=== PATIENT | male | born 1945 | race Caucasian/White ===

== ENCOUNTER 2018-09-24 19:46 | Observation (INO) ==
[2018-09-24] MEDS ORDERED: Nitroglycerin 0.4 MG TAB.SUBL SL PRN (20:14)
[2018-09-24] MEDS ORDERED: Aspirin 325 MG TABLET PO ONE (20:14)
--- NOTE | 2018-09-24 20:20 | Emergency Department Note ---
Disposition Clinical Impression: Afib Qualifiers: Atrial fibrillation type: unspecified Qualified Code(s): I48.91 - Unspecified atrial fibrillation Chest pain Qualifiers: Chest pain type: unspecified Qualified Code(s): R07.9 - Chest pain, unspecified Disposition: Admitted As Inpatient Condition: Good Time of Disposition: 21:36 Arrhythmia/Palpitations HPI - General Chief Complaint: ED Arrhythmia/Palpitations Stated Complaint: afib Time Seen by Provider: 09/24/18 20:03 Source: patient, family Mode of arrival: ambulatory Limitations: no limitations Nursing Notes Reviewed: Yes Vital Signs Reviewed: Yes - History of Present Illness HPI Narrative: 73-year-old male with a history of hypertension presents for evaluation of chest pain and A. fib. Patient states that he had no formal diagnosis of A. fib but has noted palpitations in the past. Patient was having palpitation chest pain earlier today went to [facility] where he was diagnosed with A. fib. Patient stated that his anterior chest pain earlier today lasted approximately 10 minutes and resolved. This was nonexertional without radiation. Patient was released from [facility] as he does have a scheduled appointment with Dr. Harrell tomorrow. Patient return to the ER this evening when he started feel lightheaded with blurry vision. Patient was having some anterior chest discomfort. Was denying any nausea vomiting or diaphoresis. Patient is denying any shortness of breath. Patient states he try to take his blood pressure and it would not read. Patient states that his appointment with Dr. Harrell tomorrow is long-standing. Patient denies history of known CAD states his last heart catheter was in 2010 and no stents were placed. - Related Data Allergies Allergy/AdvReac Type Severity Reaction Status Date / Time No Known Allergies Allergy Verified 09/24/18 19:48 All systems ED: reviewed and negative except as stated. Constitutional: Denies: fever Cardiovascular: Reports: chest pain Respiratory: Denies: cough, dyspnea, wheezes Gastrointestinal: Denies: nausea, vomiting Past Medical History - Past Medical History Source: patient Medical history: Reports: atrial fibrillation, hypertension, other Psychiatric history: Reports: no psych history - Social History Smoking Status: Former smoker Smokeless Tobacco Status: No Alcohol use: Reports: heavy Drug use: Reports: none Physical Exam - General Limitations: no limitations General appearance: alert, in no apparent distress - Head Head exam: atraumatic, normocephalic, normal inspection - Eye Eye exam: Present: normal appearance, PERRL, EOMI - ENT ENT exam: normal exam - Neck Neck exam: Present: normal inspection - Chest Chest inspection: Present: normal inspection, symmetric chest wall rise - Respiratory Respiratory exam: Present: normal lung sounds bilaterally. Absent: respiratory distress - Cardiovascular Cardiovascular exam: Present: regular rate, normal rhythm. Absent: normal heart sounds - Abdominal Exam Abdominal exam: Present: soft, Non-Tender - Extremities Exam Extremities exam: Present: normal inspection. Absent: pedal edema - Back Exam Back exam: Present: normal inspection - Neurological Exam Neurological exam: Present: alert, oriented X3 - Skin Skin exam: Present: warm, dry, intact, normal color Course Course Narrative: Patient seen and examined. Patient is in no acute distress. Patient is complaining of some mild discomfort. Patient will get basic cardiopulmonary evaluation and anticipated admission to the hospitalist service - Reevaluation(s) Reevaluation #1: Patient's chest score of 2. Patient is not a fall risk and will be anticoagulated with heparin. Time: 21:19 Vital Signs Temperature 98 F 09/24/18 19:50 Pulse Rate 80 09/24/18 19:50 Respiratory Rate 17 09/24/18 19:50 Blood Pressure 168/81 09/24/18 19:50 O2 Sat by Pulse Oximetry 96 09/24/18 19:50 Temperature 98 F 09/24/18 19:50 Pulse Rate 80 09/24/18 19:50 Respiratory Rate 17 09/24/18 19:50 Blood Pressure 168/81 09/24/18 19:50 O2 Sat by Pulse Oximetry 96 09/24/18 19:50 Oxygen Delivery Oxygen Delivery Room Air Arrhythmia/Palpitations - [facility] Narrative Medical decision making narrative: Patient presents for evaluation of chest pain as well as A. fib. Patient did bring his left heart catheter report from 2010 after he had an abnormal stress test. In that report a shows that the patient has stenosis of the LAD about 30%. No disease of the left main. Patient's EF was 55%. Patient appears overall well. Patient labs obtained show no I abnormalities that can cause symptoms. Patient troponin was negative. Patient's been resting comfortably in the ED. No concerns for PE with these patient's symptoms. Patient will be admitted to the hospital service with continued cardiopulmonary monitoring. - Lab Data Lab results reviewed: Yes I reviewed the patient's lab results. Result diagrams: 09/24/18 20:35 09/24/18 20:35 Lab Results 09/24/18 09/24/18 09/24/18 Range/Units 20:35 20:35 20:35 WBC 5.6 (4.3-11.1) K/mcL RBC 4.47 (4.19-5.50) M/mcL Hgb 13.7 (12.9-16.9) g/dL Hct 41.5 (37.5-50.1) % MCV 92.8 (83.0-100.0) fL MCH 30.6 (28.0-33.3) pg MCHC 33.0 (31.6-35.5) g/dL RDW 13.5 (11.5-14.5) % Plt Count 233 (140-400) K/mcL MPV 10.5 (9.4-12.4) fL Immature Gran % 0.2 (0-4) % Seg Neutrophils % 50.6 % Lymphocytes % 34.6 % Monocytes % 8.3 % Eosinophils % 5.2 % Basophils % 1.1 % Neutrophils # 2.8 (1.6-8.9) K/mcL Lymphocytes # 1.9 (0.6-4.6) K/mcL Monocytes # 0.5 (0.0-1.3) K/mcL Eosinophils # 0.3 (0.0-0.6) K/mcL Basophils # 0.1 (0.0-0.2) K/mcL PT 14.0 H (9.4-12.1) Seconds INR 1.2 APTT 33.2 (26.0-36.0) Seconds Heparin Anti-Xa, Unfract 0.57 (0.30-0.70) IU/mL Sodium 141 (136-145) mEq/L Potassium 4.0 (3.5-5.1) mEq/L Chloride 109 H (98-107) mEq/L Carbon Dioxide 24 (23-29) mEq/L BUN 26 H (8-23) mg/dL Creatinine 1.06 (0.70-1.30) mg/dL Est GFR ( Amer) > 60 (> 60) Est GFR (Non-Af Amer) > 60 (> 60) BUN/Creatinine Ratio 25 (6-26) Glucose 97 (70-105) mg/dL Calculated Osmolality 297 (280-300) Calcium 9.0 (8.6-10.3) mg/dL Magnesium 2.3 (1.6-2.6) mg/dL Troponin I < 0.03 (< 0.04) ng/mL - Radiology Data Radiology results reviewed: Yes I reviewed the patient's radiology results. Chest X-Ray 09/24/18 20:14 IMPRESSION: No acute cardiopulmonary disease. D/ / Arnaldo Tierney MD / Arnaldo Tierney MD Interpreting Provider: Arnaldo Tierney MD - EKG Data EKG attestation: Yes I reviewed and interpreted this EKG. Rate: normal Rhythm: A.Fib Morley/QRS: right axis deviation When compared to previous EKG there are: changes noted S.B.ASanta - S.Robinson Situation: Demographics Background: Presenting Complaint Assessment: Vital Signs, Course and respsone to treatment, Patient/Family Expectation Recommendation: Barrier(s) to disposition, Recommendation based on pending studies, treatments, or consults S.B.ASanta Report Given to: Dr. Susy Mcpherson Repor Time: 21:34 Attestation Statement - Attestation Attestation: Resident Attestation: I examined this patient and my medical decision making was reviewed with the Resident Physician. I agree with the documented findings, disposition and treatment plan as described except to the extent set forth below. We independently had [id number] contact with the patient. Patient presents for evaluation of A. fib and chest pain as well as dizziness and hypotension at home. Patient diagnosed with new-onset A. fib at her hospital today. Patient was in the emergency department and discharged from there. Patient will follow-up with thermostat maker tomorrow. Patient with continued symptoms and feeling as if he is given a pass out. Patient will undergo further evaluation for A. fib. Patient will be admitted for further cardiac workup of new onset A. fib associated chest pain and near syncope. Resting comfortable in bed, irregular rate and rhythm, clear to auscultation bilaterally, no swelling to the extremities.
[2018-09-24 21:04] LABS: Basophils # 0.1 K/mcL (0.0-0.2); Basophils % 1.1 %; Eosinophils # 0.3 K/mcL (0.0-0.6); Eosinophils % 5.2 %; Hematocrit 41.5 % (37.5-50.1); Hemoglobin 13.7 g/dL (12.9-16.9); Immature Granulocytes % 0.2 % (0-4); Lymphocytes # 1.9 K/mcL (0.6-4.6); Lymphocytes % 34.6 %; Mean Corpuscular Hemoglobin 30.6 pg (28.0-33.3); Mean Corpuscular Volume 92.8 fL (83.0-100.0); Mean Platelet Volume 10.5 fL (9.4-12.4); Monocytes # 0.5 K/mcL (0.0-1.3); Monocytes % 8.3 %; Neutrophils # 2.8 K/mcL (1.6-8.9); Platelet Count 233 K/mcL (140-400); Red Blood Count 4.47 M/mcL (4.19-5.50); Red Cell Distribution Width 13.5 % (11.5-14.5); Segmented Neutrophils % 50.6 %
[2018-09-24 21:13] LABS: INR 1.2
[2018-09-24 21:15] LABS: Activated Partial Thrombo Time 33.2 Seconds (26.0-36.0)
[2018-09-24] MEDS ORDERED: *HR* Heparin 5,000 UNIT/ML VIAL IVP PRN ×2 (21:18)
[2018-09-24] MEDS ORDERED: *HR* Heparin 5,000 UNIT/ML VIAL IVP ONE (21:18)
[2018-09-24 21:29] LABS: BUN/Creatinine Ratio 25 (6-26); Blood Urea Nitrogen 26 mg/dL (8-23); Carbon Dioxide 24 mEq/L (23-29); Chloride 109 mEq/L (98-107); Glucose 97 mg/dL (70-105); Magnesium 2.3 mg/dL (1.6-2.6); Osmolality,Calculated 297 (280-300); Sodium 141 mEq/L (136-145); Troponin I < 0.03 ng/mL (< 0.04); eGFR For Non-African Americans > 60 (> 60)
[2018-09-24 21:30] LABS: Heparin anti-factor XA UFH 0.57 IU/mL (0.30-0.70)
[2018-09-24 21:42] LABS: Thyroid Stimulating Hormone 3.782 mcIU/mL (0.340-5.600)
[2018-09-24] MEDS: Heparin 25,000 UNIT/250 ML D5W 25,000 UNIT/250 ML IV.SOLN IVC SCH (22:28)
[2018-09-24] MEDS ORDERED: Naloxone 0.4 MG/ML INJ IVP PRN (23:23)
--- NOTE | 2018-09-25 00:11 | Internal Med History&Physical ---
Date of Encounter: 09/24/18 Time of Encounter: 22:00 Internal Medicine - H&P: HPI Chief complaint: Palpitations, Chest Tightness Admitted From: Home Plans for Post Hospital Care: Home History of present illness: Mr. Martin is a 73 year old male with past medical history significant for hypertension, asthma, bronchitis, skin cancer, and cataracts who presents from home for complaints of palpitations with chest tightness. Was seen for same at [facility] ER this morning and diagnosed with new onset atrial fibr illation. Patient has chronic history of palpitations but no previous history of arrhythmia, however since June 2018 has been experiencing palpitations that he describes as different than his chronic palpitations. Was seen by PCP in June 2018 and had a Holter monitor ordered which did not show any arrhythmia but was told if symptoms reoccur to go to ER. [facility] consulted with [place] cardiology Dr. Harrell who scheduled to see patient tomorrow. Patient was started on metoprolol and eliquis and discharged home. After arriving home patient started having more palpitations and chest tightness associated with dizziness and blurred vision and so he sought evaluation at [facility] ER. Also reports attempting to check blood pressure at home prior to coming to [facility] and blood pressure machine would not repeat pressure. Reports previous episodes of hypotension with similar symptoms of dizziness and blurred vision. Symptoms resolved with resolution of palpitations. Chest tightness is substernal, nonradiating, and occurs only with palpitations and is rated at 4 out of 10 when at its worst. Upon arrival to [facility] ER EKG was reported as atrial fibrillation but later went back into normal rhythm. Chest x-ray was also obtained by ER which showed no acute cardiopulmonary process. Patient currently denying any headache, vision changes, dizziness, chest pain, shortness of breath, abdominal pain, nausea, bowel or bladder changes. Had previous abnormal stress test followed by heart catheterization with no interventions necessary in 2010. Follows regularly with PCP, dermatology, ophthalmology, and recently started seeing an orthopedic surgeon for possible hip replacement. Checks blood pressures at home and reports systolic has been averaging in the 120s. Reports previous tobacco smoking history, occasional social alcohol use, and denies any drug use. Past Med Surg Social Fam HX - Past Medical History Medical history: atrial fibrillation, hypertension, other Additional medical history: enlarged prostate, skin cancer Psychiatric history: no psych history - Past Surgical History Surgical History: appendectomy, orthopedic, other, vasectomy, other Additional surgical history: Pilonidal cyst, cervical disectomy and fusion - Social History Smoking Status: Former smoker Smokeless Tobacco Status: No Alcohol use: occasionally Drug use: none - Family History Mother Adopted: [place]: [place] Family Member Ethnicity: Non- Living Status: Age at : 63 Cause of : LUNG CANCER Hx Family Cardiac Disorders: No Hx Family Respiratory Disorders: No Hx Family Cancer: Yes Hx Family GI Disorders: No Hx Family Genitourinary Disorders: No Hx Family Endocrine Disorder: No Hx Family Musculoskeletal Disorders: No Hx Family Neuromuscular Disorders: No Hx Family Neurologic Disorders: No Hx Family HEENT Disorders: No Hx Family Autoimmune Disorders: No Hx Family Reproductive Disorders: No Hx Family Psychosocial Disorders: No Hx Family Medical Disorders: No Father Hx Family Cardiac Disorders: Yes Internal Medicine - H&P: Meds Albuterol Sulfate 09/24/18 [History] Brimonidine Tartrate 09/24/18 [History] Dorzolamide HCl 09/24/18 [History] Doxazosin Mesylate 4 mg PO DAILY 09/24/18 [History] Fexofenadine HCl 180 mg PO PRN PRN 09/24/18 [History] Finasteride 5 mg PO DAILY 09/24/18 [History] Flonase 50 mcg NS PRN PRN 09/24/18 [History] Lisinopril-HCTZ 10-12.5 mg PO DAILY 09/24/18 [History] Lumigan 09/24/18 [History] Naproxen 500 mg PO PRN PRN 09/24/18 [History] Allergy/AdvReac Type Severity Reaction Status Date / Time No Known Allergies Allergy Verified 09/24/18 19:48 All Systems PM: A 10-system review of systems was performed and is negative for pertinent findings except as documented above in the HPI. - Constitutional Vitals: Temp Pulse Resp BP Pulse Ox 98 F 61 16 132/81 98 09/24/18 19:50 09/24/18 22:32 09/24/18 22:32 09/24/18 22:32 09/24/18 22:32 Exam: General: Alert and oriented. Skin:Normal color, no rash, no lesions. HEENT:Pupils equal, round and reactive. Cardiovascular:Normal S1 & S2, no rubs, murmurs or gallops. No JVD. Pulse regular. Lungs:Normal breath sounds, no wheezes or crackles. Abdomen:Soft, non-tender, no rigidity. Extremities:No deformity, tenderness, joint swelling, or clubbing. Non pitting edema noted to bilateral lower extremities. Neurological:Normal cognition and motor skills. Pulses:Carotid and radial pulses normal +2. Rest of the physical exam is non contributory. Internal Med - H&P Results - Labs CBC & Chem 7: 09/24/18 20:35 09/24/18 20:35 Labs: Short CBC 09/24/18 Range/Units 20:35 WBC 5.6 (4.3-11.1) K/mcL Hgb 13.7 (12.9-16.9) g/dL Hct 41.5 (37.5-50.1) % Plt Count 233 (140-400) K/mcL Neutrophils # 2.8 (1.6-8.9) K/mcL BMP 09/24/18 20:35 Sodium 141 Potassium 4.0 Chloride 109 H Carbon Dioxide 24 BUN 26 H Creatinine 1.06 Glucose 97 Calcium 9.0 Cardiac Enzymes 09/24/18 Range/Units 20:35 Troponin I < 0.03 (< 0.04) ng/mL - Impressions ITS Impressions Chest X-Ray 09/24/18 20:14 IMPRESSION: No acute cardiopulmonary disease. D/ / Arnaldo Tierney MD / Arnaldo Tierney MD Interpreting Provider: Arnaldo Tierney MD - Assessment and Plan (1) Chest pain Current Visit: Yes Status: Acute Assessment and plan: Likely secondary to new onset atrial fibrillation. Initial troponin in ER negative, serial troponins ordered. Started on heparin drip in ER, will continue same. Continuous cardiac monitoring. Cardiology consult ordered, will need called in a.m. Qualifiers: Chest pain type: unspecified Qualified Code(s): R07.9 - Chest pain, unspecified (2) Atrial fibrillation Current Visit: Yes Status: Acute Assessment and plan: Started on metoprolol at [facility] ER today, will continue same. Started on heparin drip in ER, will continue same. Continuous cardiac monitoring. Cardiology consult ordered, will need called in a.m. Qualifiers: Atrial fibrillation type: unspecified Qualified Code(s): I48.91 - Unspecified atrial fibrillation (3) Elevated BUN Current Visit: Yes Status: Acute Assessment and plan: Creatinine and GFR within normal limits. No previous labs on file in [facility] or history of renal dysfunction. Repeat labs ordered. (4) Hypertension Current Visit: Yes Status: Chronic Assessment and plan: Continue home medications. Qualifiers: Hypertension type: unspecified Qualified Code(s): I10 - Essential (primary) hypertension - Time Spent With Patient Total time spent is greater than 50% in coordination of care (as documented) at patient's floor/unit and/or counseling patient:
[2018-09-25 08:55] LABS: Basophils # 0.1 K/mcL (0.0-0.2); Eosinophils # 0.4 K/mcL (0.0-0.6); Eosinophils % 6.8 %; Hematocrit 38.1 % (37.5-50.1); Hemoglobin 12.7 g/dL (12.9-16.9); Immature Granulocytes % 0.2 % (0-4); Lymphocytes # 1.9 K/mcL (0.6-4.6); Lymphocytes % 36.4 %; Mean Corpuscular HGB Conc 33.3 g/dL (31.6-35.5); Mean Corpuscular Hemoglobin 31.1 pg (28.0-33.3); Mean Corpuscular Volume 93.2 fL (83.0-100.0); Mean Platelet Volume 10.2 fL (9.4-12.4); Monocytes # 0.4 K/mcL (0.0-1.3); Monocytes % 8.4 %; Neutrophils # 2.4 K/mcL (1.6-8.9); Platelet Count 188 K/mcL (140-400); Red Blood Count 4.09 M/mcL (4.19-5.50); Red Cell Distribution Width 13.6 % (11.5-14.5); Segmented Neutrophils % 47.2 %
[2018-09-25] MEDS ORDERED: Dorzolamide OPTH 10 ML BOTTLE BOTH EYES SCH (09:00)
[2018-09-25] MEDS ORDERED: Finasteride 5 MG TABLET PO SCH (09:00)
--- NOTE | 2018-09-25 09:07 | Electrocardiograph Report ---
[address] [address] Test Date: 2018-09-24 Pat Name: Ileana Martin Department: 104 Room: 3B46 Gender: M Rug Receiving Clerk: Sathish : 1945 Requested By: John Jenkins Order Number: [id number] Reading MD: Benito Reeves Measurements Intervals [place] Rate: 83 P: [place]: 0 QRS: -4 QRSD: 97 T: 42 QT: 345 QTc: 385 Interpretive Statements ATRIAL FIBRILLATION ABNORMAL RHYTHM ECG Electronically Signed On 09-25-2018 9:06:05 EDT by Benito Reeves
[2018-09-25 09:16] LABS: BUN/Creatinine Ratio 27 (6-26); Blood Urea Nitrogen 25 mg/dL (8-23); Calcium 8.6 mg/dL (8.6-10.3); Carbon Dioxide 26 mEq/L (23-29); Chloride 109 mEq/L (98-107); Glucose 102 mg/dL (70-105); Osmolality,Calculated 299 (280-300); Potassium 3.5 mEq/L (3.5-5.1); Sodium 142 mEq/L (136-145); Troponin I < 0.03 ng/mL (< 0.04); eGFR For Non-African Americans > 60 (> 60)
[2018-09-25 11:23] VITALS: BP 125/77
--- NOTE | 2018-09-25 12:58 | Cardiology Consult Note ---
<TavonJaswinder flores R - Last Filed: 09/25/18 12:54> Date of Encounter: 09/25/18 Time of Encounter: 12:55 Assessment and Plan (1) PAF (paroxysmal atrial fibrillation) Status: Acute C/O palpitations and chest tightness. Seen at [facility] yesterday and diagnosed with new onset A-Fib. 2 similar episodes June 2018. Pt was started on metoprolol and eliquis from ED and discharged home. Recurrent symptoms last night prompted ED eval. Admission ECG shows A-Fib rate 80s. Pt since converted back to SR. Symptoms resolved with resolution of A-Fib. K, Mag, TSH WNL. Check TTE to evaluate structure and function. Agree with low dose BB--Lopressor 25mg BID. 12 hr tele AVG HR 52, SR. [id number] 2 (Age, HTN). High CVA risk. Recommend AC. R/B/A discussed and pt agrees. Eliquis was $300 for 90 day supply, not affordable. Will start Coumadin with pharmacy to dose. Plan to refer to [facility] as outpt. If no significant findings on TTE then no further inpt cardiac testing will be warranted. (2) Chest pain Status: Acute Chest tightness is substernal, nonradiating, and occurs only with palpitations/when in A-Fib. No exertional symptoms. Troponins negative x 3. Check TTE. [facility] 2010 minimal CAD (luminal irregularities in LCx and LAD). Can consider outpt stress test for re-evaluation. Qualifiers: Chest pain type: unspecified Qualified Code(s): R07.9 - Chest pain, unspecified Discussion w patient/family: The assessment and plan as outlined above was discussed with the patient and/or family members who expressed understanding and agreement. All questions were answered. Thank you for involving us in the care of your patient. Please call with any questions. I will discuss all the above with Dr. Reeves and make changes as necessary. History of Present Illness Consult date: 09/25/18 Consult reason: PAF Chief complaint: chest tightness, palpitations History of present illness: Mr. Martin is a 73 year old male with PMH of HTN, asthma, bronchitis, skin cancer, and cataracts who presents from home for complaints of palpitations with chest tightness. Was seen for same at [facility] ER yesterday morning and diagnosed with new onset atrial fibrillation. 2 similar episodes June 2018, saw PCP and holter monitor was ordered which did not show any arrhythmia. Pt was started on metoprolol and eliquis from ED and discharged home. After arriving home patient started having more palpitations and chest tightness associated with dizziness and blurred vision and so he sought evaluation at [facility] ER. Sympt oms resolved with resolution of palpitations. Chest tightness is substernal, nonradiating, and occurs only with palpitations. Troponins negative. Cardiology consulted for further recs. No complaints currently. Past Med Surg Social Fam HX - Past Medical History Medical history: asthma, atrial fibrillation, glaucoma, hypertension, other Additional medical history: enlarged prostate, skin cancer Psychiatric history: no psych history - Past Surgical History Surgical History: appendectomy, orthopedic, other, vasectomy, other Additional surgical history: Pilonidal cyst, cervical disectomy and fusion - Social History Smoking Status: Former smoker Smokeless Tobacco Status: No Alcohol use: occasionally Drug use: none - Family History Mother Adopted: [place]: [place] Family Member Ethnicity: Non- Living Status: Age at : 63 Cause of : LUNG CANCER Hx Family Cardiac Disorders: No Hx Family Respiratory Disorders: No Hx Family Cancer: Yes Hx Family GI Disorders: No Hx Family Genitourinary Disorders: No Hx Family Endocrine Disorder: No Hx Family Musculoskeletal Disorders: No Hx Family Neuromuscular Disorders: No Hx Family Neurologic Disorders: No Hx Family HEENT Disorders: No Hx Family Autoimmune Disorders: No Hx Family Reproductive Disorders: No Hx Family Psychosocial Disorders: No Hx Family Medical Disorders: No Father Hx Family Cardiac Disorders: Yes Medications and Allergies Albuterol Sulfate [Albuterol Inhaler] 2 puff IH Q4-6H PRN 09/25/18 [History] Amlodipine Besylate 5 mg PO DAILY 09/25/18 [History] Apixaban [Eliquis] 5 mg PO BID tablet 09/25/18 [Rx] Bimatoprost [Lumigan] 1 drop BOTH EYES HS 09/25/18 [History] Brimonidine 0.2% [Alphagan] 1 drop BOTH EYES BID 09/25/18 [History] Doxazosin [Cardura] 4 mg PO DAILY 09/25/18 [History] Fexofenadine HCl 180 mg PO DAILY PRN 09/25/18 [History] Finasteride [Proscar] 5 mg PO DAILY 09/25/18 [History] Fluticasone Propionate Nasal [Flonase] 2 spray NS DAILY PRN 09/25/18 [History] Lisinopril-HCTZ 10-12.5 [Prinzide 10-12.5] 1 tab PO DAILY 09/25/18 [History] Metoprolol [Lopressor] 12.5 mg PO BID #30 tablet 09/25/18 [Rx] Multivitamin [One Daily Essential] 1 tab PO DAILY 09/25/18 [History] Turmeric Root Extract [Turmeric Curcumin] 500 mg PO BID 09/25/18 [History] Allergy/AdvReac Type Severity Reaction Status Date / Time No Known Allergies Allergy Verified 09/25/18 10:19 All Systems Review: The remainder of the systems were reviewed and are negative - Cardiovascular Cardiovascular: as per HPI, chest pain at rest, palpitations Physical Examination Vital Signs, Last 4 Hours Temp Pulse Resp BP Pulse Ox 09/25/18 11:20 97.8 F 51 16 125/77 95 Vital Signs Temp Pulse Resp BP Pulse Ox 09/25/18 11:20 97.8 F 51 16 125/77 95 09/25/18 07:03 97.8 F 57 16 147/84 94 09/25/18 03:31 97.5 F L 47 16 122/80 96 09/25/18 00:00 97.9 F 57 16 133/82 97 09/24/18 22:32 61 16 132/81 98 09/24/18 21:33 74 134/78 09/24/18 20:33 89 126/92 09/24/18 19:50 98 F 80 17 168/81 96 Intake and Output 09/24/18 09/25/18 09/25/18 23:59 07:59 15:59 Intake Total 83.1 / 169.5 86.4 / 169.5 Output Total 350 / 350 Balance -266.9 / -180.5 86.4 / -180.5 Intake: IV Fluids 83.1 / 169.5 86.4 / 169.5 Heparin 25,000 UNIT/250 ML D5W 83.1 / 169.5 86.4 / 169.5 25,000 unit In 250 ml @ 14 UNIT /KG/HR 14.72 mls/hr IVC .Q17H TOI Rx#:[id number] Output: Urine 350 / 350 Other: Weight 105.143 kg 105.6 kg Patient Weight 09/25/18 23:59 Weight 105.6 kg General: Conversant, No Apparent Distress HEENT: Atraumatic, Normocephaly, Mucus Membranes Moist Neck: No JVD, Normal carotid pulses Cardiac: Reg Rate and Rhythm, Normal S1 and S2, No Murmur Lungs: Normal Breath Sounds, No Wheeze, Rales, Rhonchi Neuro: Alert and responsive, No focal deficits noted Abdomen: Soft, Non-Tender Skin: No rashes noted on visualized skin Musculoskeletal: No Chest Wall Tenderness Extremities: No Clubbing, No Cyanosis, No Edema, Normal Pulses Results 09/25/18 08:24 09/25/18 08:24 Lab Results 09/24/18 09/24/18 09/24/18 20:35 20:35 20:35 WBC 5.6 Hgb 13.7 Hct 41.5 Plt Count 233 INR 1.2 APTT 33.2 Sodium 141 Potassium 4.0 Chloride 109 H Carbon Dioxide 24 BUN 26 H Creatinine 1.06 Glucose 97 Calcium 9.0 Magnesium 2.3 Troponin I < 0.03 TSH 3.782 09/25/18 09/25/18 09/25/18 03:15 08:24 08:24 WBC 5.1 Hgb 12.7 L Hct 38.1 Plt Count 188 INR APTT Sodium 142 Potassium 3.5 Chloride 109 H Carbon Dioxide 26 BUN 25 H Creatinine 0.92 Glucose 102 Calcium 8.6 Magnesium Troponin I < 0.03 < 0.03 TSH - EKG Interpretation EKG results cardiology: personally reviewed (Initial ECG A-Fib, then SR), other (12 hr tele AVG HR 52) Consult Discharge Plan - Plan Instructions: Metoprolol (By mouth), Atrial Fibrillation (DC), Chest Pain (DC) Referrals: Chica Waters CNP [Primary Care Provider] - 09/27/18 3:00 pm Silver Harrell MD [Partnered Physician] - (An appointment has been requested. The office will contact you at home to schedule an appointment. ) Prescriptions: Metoprolol [Lopressor] 12.5 mg PO BID #30 tablet < A - Last Filed: 09/25/18 17:24> Date of Encounter: 09/25/18 - Attending Attestation I have personally performed a face to face evaluation on this patient. I have reviewed and agree with the documented findings and care plan as documented by the [employer]. History and Exam by me shows: 73-year-old pleasant gentleman with newly diagnosed atrial fibrillation. Echo shows preserved ejection fraction and no significant valvular dysfunction. He is currently in sinus rhythm, asymptomatic, with heart rates in the high 40s to low 50s. Continue metoprolol 25 mg twice a day and Eliquis 5 mg twice a day. He was advised to follow-up with Dr. Silver Harrell as originally arranged by Dr. Parisi. Consideration should be given for ischemic workup as outpatient. Thanks, Benito Reeves MD [facility] Assessment and Plan Discussion w patient/family: The assessment and plan as outlined above was discussed with the patient and/or family members who expressed understanding and agreement. All questions were answered. Thank you for involving us in the care of your patient. Please call with any questions. History of Present Illness History of present illness: Mr. Martin is a 73 year old male All Systems Review: The remainder of the systems were reviewed and are negative Physical Examination Vital Signs, Last 4 Hours Temp Pulse Resp BP Pulse Ox 09/25/18 11:20 97.8 F 51 16 125/77 95 Results 09/25/18 08:24 09/25/18 08:24 Lab Results 09/24/18 09/24/18 09/24/18 20:35 20:35 20:35 WBC 5.6 Hgb 13.7 Hct 41.5 Plt Count 233 INR 1.2 APTT 33.2 Sodium 141 Potassium 4.0 Chloride 109 H Carbon Dioxide 24 BUN 26 H Creatinine 1.06 Glucose 97 Calcium 9.0 Magnesium 2.3 Troponin I < 0.03 TSH 3.782 09/25/18 09/25/18 09/25/18 03:15 08:24 08:24 WBC 5.1 Hgb 12.7 L Hct 38.1 Plt Count 188 INR APTT Sodium 142 Potassium 3.5 Chloride 109 H Carbon Dioxide 26 BUN 25 H Creatinine 0.92 Glucose 102 Calcium 8.6 Magnesium Troponin I < 0.03 < 0.03 TSH
[2018-09-25] MEDS: Heparin 25,000 UNIT/250 ML D5W 25,000 UNIT/250 ML IV.SOLN IVC SCH (14:42)
--- NOTE | 2018-09-25 16:01 | Discharge Summary ---
- NOTES TO OUTPATIENT PROVIDER Notes to Outpatient Provider: f/u with PCP in one week. f/u with Cardiology Dr. Silver queen scheduled before. Please start taking Metoprolol 12.5mg PO BID, as well as Eliquis 5mg PO BID Date of Encounter: 09/25/18 Time of Encounter: 15:52 - Discharge Diagnosis (1) Chest pain Priority: Primary Status: Acute Qualifiers: Chest pain type: unspecified Qualified Code(s): R07.9 - Chest pain, unspecified (2) Atrial fibrillation Priority: Primary Status: Acute Qualifiers: Atrial fibrillation type: unspecified Qualified Code(s): I48.91 - Unspecified atrial fibrillation (3) Elevated BUN Priority: Secondary Status: Acute (4) Hypertension Priority: Secondary Status: Chronic Qualifiers: Hypertension type: unspecified Qualified Code(s): I10 - Essential (primary) hypertension Hospital course: Mr. Martin is a 73 year old male with known past medical history of hypertension, asthma, bronchitis, skin cancer and cataracts who presented to [facility] ER with chest tightness and palpitations. He was there y/d morning and dx with new onset Afib. Pt was started on Metoprolol. He got converted to NSR right away. He was admitted in the hospital and placed him on cardiac catheterization technician. His serial troponin came back as negative. He denied any more CP. Since CHADSVASC was 3 started him on heparin anti coag. His 2 D echo showed preserved LVEF, No septal / wall motion abnormality. Pt was evaluated by Cardiology who recommend out pt stress test. Since his HR in low 50's cut down on his Metoprolol to 12.5mg pO BID. Will d/c him home in stable condition today. - Time Spent with Patient Total time spent providing and/or coordinating discharge services: Time spent: D/C greater than 8 hours after Admission (I provided [id number] service to this patient more than 8 hours apart since patient got admitted in the hospital by my colleague) - Discharge Medications Prescriptions: New Apixaban [Eliquis] 5 mg PO BID tablet Metoprolol [Lopressor] 12.5 mg PO BID #30 tablet Continued Amlodipine Besylate 5 mg PO DAILY Bimatoprost [Lumigan] 1 drop BOTH EYES HS Brimonidine 0.2% [Alphagan] 1 drop BOTH EYES BID Doxazosin [Cardura] 4 mg PO DAILY Finasteride [Proscar] 5 mg PO DAILY Lisinopril-HCTZ 10-12.5 [Prinzide 10-12.5] 1 tab PO DAILY Multivitamin [One Daily Essential] 1 tab PO DAILY Turmeric Root Extract [Turmeric Curcumin] 500 mg PO BID Fluticasone Propionate Nasal [Flonase] 2 spray NS DAILY PRN PRN Reason: Allergy Symptoms Fexofenadine HCl 180 mg PO DAILY PRN PRN Reason: Allergy Symptoms Albuterol Sulfate [Albuterol Inhaler] 2 puff IH Q4-6H PRN PRN Reason: Shortness Of Breath Discontinued Naproxen 500 mg PO BID PRN PRN Reason: Pain Home Medications: Albuterol Sulfate [Albuterol Inhaler] 2 puff IH Q4-6H PRN 09/25/18 [History] Amlodipine Besylate 5 mg PO DAILY 09/25/18 [History] Apixaban [Eliquis] 5 mg PO BID tablet 09/25/18 [Rx] Bimatoprost [Lumigan] 1 drop BOTH EYES HS 09/25/18 [History] Brimonidine 0.2% [Alphagan] 1 drop BOTH EYES BID 09/25/18 [History] Doxazosin [Cardura] 4 mg PO DAILY 09/25/18 [History] Fexofenadine HCl 180 mg PO DAILY PRN 09/25/18 [History] Finasteride [Proscar] 5 mg PO DAILY 09/25/18 [History] Fluticasone Propionate Nasal [Flonase] 2 spray NS DAILY PRN 09/25/18 [History] Lisinopril-HCTZ 10-12.5 [Prinzide 10-12.5] 1 tab PO DAILY 09/25/18 [History] Metoprolol [Lopressor] 12.5 mg PO BID #30 tablet 09/25/18 [Rx] Multivitamin [One Daily Essential] 1 tab PO DAILY 09/25/18 [History] Turmeric Root Extract [Turmeric Curcumin] 500 mg PO BID 09/25/18 [History] Allergies/Adverse Reactions: Allergy/AdvReac Type Severity Reaction Status Date / Time No Known Allergies Allergy Verified 09/25/18 10:19 Date of admission: 09/24/18 22:15 Primary care physician: Chica Waters CNP Consults: 09/24/18 23:33 Consult to Cardiology [CONS] Routine Comment: Consulting Provider: Cardiology Catherine Reason for Consult: New onset afib associated with palpitations and chest tightness. Seen at [facility] ER today for same who consulted Dr Harrell who planned to see tomorrow and was discharged home on metoprolol and eliquis. Once home symptoms returned so patient came to [facility] ER. Call Completed: No - Constitutional Vitals: Temp Pulse Resp BP Pulse Ox 97.8 F 51 16 125/77 95 09/25/18 11:20 09/25/18 11:20 09/25/18 11:20 09/25/18 11:20 09/25/18 11:20 General appearance: Present: A&O X 3, no acute distress, answers questions appropriately Exam: Gen: Alert, awake, Oriented to time,place and person Chest: Diminished breath sounds B/L, No wheezing, No crackles, No rales Heart: S1S2+ RRR No murmurs Abd: Soft, NT, BS +, No organomegaly Ext: No edema, pulses are palpable, No calf tenderness Neuro : Benign findings Skin: No rash. - Patient Status Disposition: Home, Self-Care Condition: Good Overall status at discharge: patient is back to baseline - Discharge Instructions Follow Up With: Chica Waters CNP [Primary Care Provider] - 09/27/18 3:00 pm Silver Harrell MD [Partnered Physician] - (An appointment has been requested. The office will contact you at home to schedule an appointment. ) - Diet and Activity Activity: increase activity as tolerated Diet: low salt diet
[2018-09-25] MEDS ORDERED: Apixaban 5 MG TABLET PO SCH (21:00)
[2018-09-25] MEDS ORDERED: Latanoprost 2.5 ML BOTTLE BOTH EYES SCH (21:00)
--- NOTE | 2018-09-26 13:02 | Electrocardiograph Report ---
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
== END 2018-09-25 16:31 | disposition home or self-care (01) ==
LOC: 3BNU 19:46 → EMEROOARM 19:46 → SUATTDRO 22:15 → 3BNU 23:13
PROVIDERS: ADMIT Pediatrics; ATTEND Family Medicine